=== PATIENT | female | born 1985 | race Caucasian/White ===

== ENCOUNTER 2018-10-15 22:17 | Emergency (ER) | payer BC ==
[~2018-10-15] VITALS: Ht 152.4 cm; Wt 88.5 kg
[2018-10-15] MEDS ORDERED: REXULTI1 MG PO (22:57)
[2018-10-15] MEDS ORDERED: SYNTHROID50 MCG PO (22:57)
[2018-10-15] MEDS ORDERED: CYTOMEL 25 MCG25 MC1 PO (22:57)
[2018-10-15] MEDS ORDERED: PRILOSEC (22:59)
[2018-10-15] MEDS ORDERED: VALIUM5 MG PO (23:00)
[2018-10-15] MEDS ORDERED: PROPRANOLOL 1010 MG PO (23:01)
[2018-10-15] MEDS ORDERED: B12INJ IM (23:01)
[2018-10-15] MEDS ORDERED: NEURONTIN600 MG PO (23:02)
[2018-10-15 23:09] LABS: ABSOLUTE NEUTROPHILS 6.8 thou/uL (1.4-8.2); BASOPHILS 0.9 % (0.0-2.0); EOSINOPHILS 1.4 % (0.0-3.0); HEMATOCRIT 37.1 % (37.0-47.0); HEMOGLOBIN 12.4 gm/dL (12.0-15.0); LYMPHOCYTES 32.2 % (24.0-44.0); MCHC 33.6 g/dL (28.0-37.0); MCV 80.4 fL (80.0-100.0); MONOCYTES 5.7 % (1.0-8.0); PLATELET COUNT 334 thou/uL (150-400); POLYS 59.8 % (36.0-66.0); RBC 4.61 mil/uL (4.20-5.00); RDW 14.7 % (10.5-14.5); WBC 11.4 thou/uL (4.0-11.0)
[2018-10-15 23:17] LABS: ANION GAP 12 mmol/L (7-16); BUN 8 mg/dL (7-18); CALCIUM 8.8 mg/dL (8.5-10.1); CHLORIDE 103 mmol/L (98-107); CO2 24 mmol/L (21-32); CREATININE 1.1 mg/dL (0.6-1.0); GLUCOSE 95 mg/dL (74-106); POTASSIUM 3.5 mmol/L (3.5-5.1); SODIUM 139 mmol/L (136-145)
[2018-10-15 23:28] LABS: ALBUMIN 3.3 g/dL (3.4-5.0); LIPASE 60 U/L (73-393); MAGNESIUM 1.8 mg/dL (1.8-2.4); SGOT 21 U/L (15-37); SGPT 28 U/L (30-65); TOTAL BILIRUBIN 0.3 mg/dL (<0.1-1.0); TOTAL PROTEIN 6.9 g/dL (6.4-8.2); TROPONIN-I <0.06 ng/mL (<0.06)
[2018-10-16 00:31] VITALS: BP 128/83
--- NOTE | 2018-10-16 09:24 | EKG ---
[place] [address] [facility] [place] [address] ELECTROCARDIOGRAM REPORT Name: MALISSA SHANNON Room #: [facility]CENTSBarrera#: [id number] ������������������ Admission: 10/15/18 ������������������ Attend Phys: Discharge: 10/16/18 ������������������ Date of : 87 Report #: [id number] ����������������������������������������������������������������� [id number] THIS REPORT FOR: //name// [facility] ED Test Date: 2018-10-15 Test Time: 22:35:32 Pat Name: MALISSA SHANNON Department: Room: Gender: F 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 [place]: : 1985 Requested By: Lexie Banks Order Number: [id number] MD: Mukesh Villalta Measurements Intervals [place] Rate: 69 P: -13 WI: 185 QRS: 20 QRSD: 124 T: 23 QT: 393 QTc: 421 Interpretive Statements Sinus rhythm No significant abnormality No previous ECG available for comparison Electronically Signed On 10-16-2018 9:24:40 CDT by Mukesh Villalta [email or web address] ��������������������������������������������� <ELECTRONICALLY SIGNED> ���������������������������������������� By: Mukesh Villalta MD, [facility] ��������������������������������������������� 10/16/18 0924 2235 2235 Mukesh Villalta MD, FACC /EPI
== END 2018-10-16 00:35 | disposition home or self-care (01) ==
LOC: ER 22:17
PROVIDERS: Nurse Practitioner Family
DX: R07.89 Other chest pain (principal); E78.5 Hyperlipidemia, unspecified

== ENCOUNTER 2019-06-12 11:06 | Emergency (ER) | payer OTHER ==
[~2019-06-12] VITALS: Ht 152.4 cm; Wt 104.3 kg
[~2019-06-12 11:06] MED LIST: B12INJ IM; CYTOMEL 25 MCG25 MC1 PO; NEURONTIN600 MG PO; PRILOSEC; PROPRANOLOL 1010 MG PO; REXULTI1 MG PO; SYNTHROID50 MCG PO; VALIUM5 MG PO
[2019-06-12 11:07] VITALS: BP 119/83
[2019-06-12] MEDS ORDERED: PROMETH-CODEIN 65 ML PO (12:06)
[2019-06-12] MEDS ORDERED: PREDNISONE 20 M20 MG PO (12:06)
[2019-06-12] MEDS ORDERED: PROAIR HFA8.5 GM INH (12:06)
== END 2019-06-12 12:14 | disposition home or self-care (01) ==
LOC: ER 11:06
DX: J20.9 Acute bronchitis, unspecified (principal); E78.5 Hyperlipidemia, unspecified

== ENCOUNTER 2020-08-22 18:10 | Emergency (ER) | payer OTHER ==
[~2020-08-22] VITALS: Ht 160 cm; Wt 95.3 kg
[~2020-08-22 18:10] MED LIST changes: +PREDNISONE 20 M20 MG PO; +PROAIR HFA8.5 GM INH; +PROMETH-CODEIN 65 ML PO
[2020-08-22 19:50] VITALS: BP 141/79
--- NOTE | 2020-08-23 06:59 | EKG ---
[place] [address] 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
== END 2020-08-22 19:53 | disposition left against medical advice (07) ==
LOC: ER 18:10
DX: R53.1 Weakness (principal); E78.5 Hyperlipidemia, unspecified; E03.9 Hypothyroidism, unspecified; Z86.2 Personal history of diseases of the blood and blood-forming organs and certain disorders involving the immune mechanism; Z79.899 Other long term (current) drug therapy

== ENCOUNTER 2020-10-29 15:06 | Emergency (ER) | payer OTHER ==
[~2020-10-29] VITALS: Ht 152.4 cm; Wt 114.8 kg
[2020-10-29] MEDS ORDERED: NORCO5 PO (16:38)
[2020-10-29] MEDS ORDERED: IBUPROFEN 800800 M1 PO (16:38)
[2020-10-29 16:45] VITALS: BP 123/85
== END 2020-10-29 16:45 | disposition home or self-care (01) ==
LOC: ER 15:06
DX: M79.672 Pain in left foot (principal); E78.5 Hyperlipidemia, unspecified; F17.210 Nicotine dependence, cigarettes, uncomplicated; Z79.899 Other long term (current) drug therapy; Z88.6 Allergy status to analgesic agent

== ENCOUNTER 2020-11-19 15:08 | Emergency (ER) | payer OTHER ==
[~2020-11-19] VITALS: Ht 152.4 cm; Wt 116.6 kg
[~2020-11-19 15:08] MED LIST changes: +IBUPROFEN 800800 M1 PO; +NORCO5 PO
[2020-11-19 15:56] LABS: BASOPHILS 0.7 % (0.0-2.0); EOSINOPHILS 1.8 % (0.0-3.0); HEMATOCRIT 35.9 % (37.0-47.0); HEMOGLOBIN 11.7 gm/dL (12.0-15.0); LYMPHOCYTES 19.2 % (24.0-44.0); MCH 28.4 pg (26.0-34.0); MCHC 32.6 g/dL (28.0-37.0); MONOCYTES 5.3 % (1.0-8.0); PLATELET COUNT 385 thou/uL (150-400); RBC 4.12 mil/uL (4.20-5.00); RDW 13.3 % (10.5-14.5); WBC 9.6 thou/uL (4.0-11.0)
[2020-11-19 16:06] LABS: ANION GAP 10 mmol/L (7-16); BUN 6 mg/dL (7-18); CHLORIDE 104 mmol/L (98-107); CO2 26 mmol/L (21-32); CREATININE 0.9 mg/dL (0.6-1.0); GLUCOSE 77 mg/dL (74-106); POTASSIUM 4.1 mmol/L (3.5-5.1); SODIUM 140 mmol/L (136-145)
[2020-11-19 16:16] LABS: ALBUMIN 3.1 g/dL (3.4-5.0); SGOT 18 U/L (15-37); SGPT 22 U/L (14-59); TOTAL BILIRUBIN 0.2 mg/dL (0.2-1.0); TOTAL PROTEIN 7.4 g/dL (6.4-8.2); TROPONIN-I <0.06 ng/mL (<0.06)
[2020-11-19 16:35] VITALS: BP 113/79
--- NOTE | 2020-11-20 11:00 | EKG ---
[place] [address] [place] [address] ELECTROCARDIOGRAM REPORT Name: MALISSA SHANNON Room #: [facility] Shelli#: [id number] Admission: 11/19/20 Attend Phys: Discharge: 11/19/20 Date of : [birth year] Report #: [id number] [facility] ED Test Date: 2020-11-19 Test Time: 15:14:23 Pat Name: MALISSA SHANNON Department: Room: Gender: F Bin Operator: [place]I : 1985 Requested By: Adan Brunson Order Number: [id number] MD: Jefferson Arora Measurements Intervals [place] Rate: 73 P: -5 [place]: 169 QRS: 2 QRSD: 86 T: 16 QT: 390 QTc: 430 Interpretive Statements Sinus rhythm Low voltage, precordial leads Compared to ECG 08/22/2020 18:16:04 No significant changes Electronically Signed On 11-20-2020 11:00:10 CDT by Jefferson Arora [email or web address] <ELECTRONICALLY SIGNED> By: Jefferson Arora MD 11/20/20 1100 1514 1514 Jefferson Arora MD /YENIFER
== END 2020-11-19 16:41 | disposition home or self-care (01) ==
LOC: ER 15:08
PROVIDERS: Emergency Medicine
DX: R07.9 Chest pain, unspecified (principal); E78.5 Hyperlipidemia, unspecified; F17.210 Nicotine dependence, cigarettes, uncomplicated; Z79.1 Long term (current) use of non-steroidal anti-inflammatories (NSAID); Z79.891 Long term (current) use of opiate analgesic; Z79.51 Long term (current) use of inhaled steroids; Z79.899 Other long term (current) drug therapy; Z88.5 Allergy status to narcotic agent